=== PATIENT | male | born 1960 | race Caucasian/White ===

== ENCOUNTER → 2018-10-02 13:57 | Outpatient (REF) | payer OTHER, SELFPAY | LOC: LAB 13:57 | PROVIDERS: Visit Provider Dermatology MOHS-Micrographic Surgery | DX: Z48.817 Encounter for surgical aftercare following surgery on the skin and subcutaneous tissue (principal) | CPT/HCPCS: 87070; 87077; 87147; 87186; 87205 ==

== ENCOUNTER → 2018-10-19 23:23 | Outpatient (REF) | payer OTHER, SELFPAY | LOC: LAB 23:23 | PROVIDERS: Visit Provider Dermatology MOHS-Micrographic Surgery | DX: L08.9 Local infection of the skin and subcutaneous tissue, unspecified (principal); Z48.817 Encounter for surgical aftercare following surgery on the skin and subcutaneous tissue | CPT/HCPCS: 87070; 87075; 87077; 87147; 87205 ==

== ENCOUNTER 2019-10-26 13:04 | Day surgery (SDC) | payer OTHER, SELFPAY ==
[2019-10-25 10:48] VITALS: BMI 24.0
[2019-10-26] VITALS (7 sets, daily range): BP systolic 135–163; BP diastolic 84–91; PULSE 86–94; RESP 11–18; TEMP 35.9–36.7; O2SAT 81–97; BMI 23.2
[2019-10-26] MEDS: LACTATED RINGERS 1,000 ML 42 ML IV ×2 (14:29→16:50)
--- NOTE | 2019-10-26 15:18 | PM.PREOP ---
Pre-operative Note Interval Note History & Physical reviewed/Exam performed by Physician: Yes Changes to H&P: No
[2019-10-26] MEDS: CEFAZOLIN 2 GM/100 ML FROZ.PIGGY IV (15:40)
--- NOTE | 2019-10-26 16:08 | SUR.OPER ---
Supine on padded OR bed, head on pillow, bilateral arms padded and tucked at side, legs uncrossed, safety belt at thigh, tape over blanket over lower legs .
[2019-10-26] MEDS: BUPIVACAINE 0.25% (PF) VIAL 30 ML INJ (16:14)
--- NOTE | 2019-10-26 17:55 | PM.OP.1 ---
Operative Date/Time/Diagnoses Date of procedure: 10/26/19 Time of procedure: 17:55 Pre-op diagnosis: Bilateral inguinal hernia Post-op diagnosis: same Procedure & Clinicians Procedure: Laparoscopic transabdominal preperitoneal repair of bilateral inguinal hernia Same procedure as scheduled: Yes Indications: Bilateral inguinal hernia Surgeon: Daniel Melo Anesthesia Type: General Operative Notes Findings: Bilateral direct inguinal hernia Estimated Blood Loss (mL): 20 Procedure in detail: The patient was brought to the operating room and placed supine on the table. Bilateral sequential compression devices were applied. General anesthesia was induced and they were intubated with an endotracheal tube. A carty cath was placed in sterile fashion. They received Ancef prior to skin incision. They were prepped and draped in sterile fashion. A time out was performed to ensure the correct patient, procedure and necessary equipment within the operating room. The skin was infiltrated with 0.25% bupivicaine. A 1 cm supra umbilical midline incision was made. The fascia was elevated and sharply incised and the abdomen entered traumatically. A 12 mm balloon port was placed and pneumoperitoneum was established at 15mm Hg. Inspection of the abdomen demonstrated no evidence of injury upon entry. Two 5 mm ports were then placed under direct visualization in the right and left lower quadrant lateral to the rectus muscle. A left and right direct hernias were observed. We began with the left inguinal hernia. The vas deferns the spermatic vessels were identified and protected. The sigmoid colon was slightly obscuring our view and its lateral attachments were carefully incised in order to mobilize it out of the way. The peritoneum 4 cm superior to the deep inguinal ring between the medial umbilical ligament and the anterior superior iliac spine was incised. The peritoneal flap was retracted and the preperitoneal tissue was dissected off the flap beginning lateral to the inferior epigastric artery and towards the ASIS and to posterior limit of the psoas muscle to develop the lateral aspect of the pocket. Next the peritoneum medial to the inferior epigastric was mobilized towards the median umbilical ligament to develop the medial aspect of the pocket and the direct defect was reduced. The space of Retzius was fully dissected such that the Haroldo's ligament and the pubic symphysis were visible. Next, the peritoneum was mobilized off the the spermatic vessels and vas deferns. A medium Bard 3D Max mesh was then placed into the abdomen and positioned such that the myopectineal orifice was completely covered with good overlap on all sides. The mesh was anchored to the pubic tubercle and to Haroldo?s ligament. The peritoneal flap was then repositioned back to its original position and tacks were used to anchor it in position such that no bowel could herniate into the preperitoneal space. The area was examined for hemostasis. Next the right inguinal hernia was approached. This patient had a previous open appendectomy and there was significant scar tissue in the right groin. The scar tissue was carefully and sharply incised with scissors in order to provide adequate access to the right groin anatomy. The right groin was then repaired in the same fashion as the left. It had a small size right direct inguinal hernia, there was no indirect defect. A Bard 3DMax medium mesh was positioned into the myopectineal orifice and was then closed in the same fashion. The 5mm trocars were removed under direct visualization and pneumoperitoneum was deflated through the umbilical trocar, The fascia at the umbilicus was closed with 0-Vicryl in figure of 8 fashion, skin closed with 4-0 Monocyl followed by Dermabond. The sponge and instrument count at the end of the case was correct. Both testicles were entirely within the scrotum at the end of the case. The patient emerged from anesthsia was extubated and transferred to recovery in stable condition. Complications: none Post-operative Condition: stable Disposition: same day surgery
--- NOTE | 2019-10-26 17:58 | SUR.PHASEI ---
Patient awake alert and oriented denies pain/nausea. Magaly LEARY.
[2019-10-26] MEDS: OXYCODONE/ACETAMINOPHEN 5/325 TABLET 1 TAB PO (18:41)
--- NOTE | 2019-10-26 18:46 | SUR.PHASEII ---
Patient had small amount of hematuria when voiding. Dr Melo notified. Patient had a carty catheter during procedure.
== END 2019-10-26 18:47 | disposition home or self-care (01) ==
PROVIDERS: PCP General Practice; Referring Provider Surgery; Visit Provider Surgery
PROC: 0YQ64ZZ Repair Left Inguinal Region, Percutaneous Endoscopic Approach (ICD-10-PCS; CPT 49650; principal; 2019-10-26 14:45)
DX: K40.20 Bilateral inguinal hernia, without obstruction or gangrene, not specified as recurrent (principal)
CPT/HCPCS: 49650; C1781; J0690; J1100; J1885; J2250; J2405; J2704; J3010

== ENCOUNTER → 2020-01-28 12:54 | Outpatient (CLI) | payer OTHER, SELFPAY ==
--- NOTE | 2020-01-28 13:57 | DI.CT.S_ITS ---
PROCEDURE: CT ABDOMEN PELVIS W CON INDICATIONS: left groin discomfort after hernia repair TECHNIQUE: After the administration of oral and intravenous contrast, 5 mm thick sections acquired from the diaphragms to the symphysis. 5 mm thick coronal and sagittal reformats were performed. For radiation dose reduction, the following was used: automated exposure control, adjustment of mA and/or kV according to patient size. COMPARISON: None. FINDINGS: Image quality: Excellent. ABDOMEN: Lung bases: Lung bases are clear. Heart size is normal. Solid organs: Liver is normal in size and enhancement. Gallbladder is normal. Biliary system is non-dilated. Pancreas enhances normally. Spleen is normal in size and enhancement. No adrenal nodules. Kidneys are normal in size and enhancement, without hydronephrosis. A 2.9 cm exophytic right renal cyst. Peritoneum and bowel: Stomach, small bowel, and colon loops are normal in caliber and wall thickness. No free fluid or air. Nodes and vessels: No retroperitoneal or mesenteric adenopathy. Aorta and inferior vena cava are normal in caliber. The appendix is not definitely visualized, however no free fluid or inflammatory changes are noted adjacent to the cecum. Miscellaneous: No ventral hernias. PELVIS: Genitourinary: Bladder wall is diffusely thickened and slightly irregular. Stranding is noted in the fat anterior to the inferior margin of the urinary bladder extending to the right inguinal canal which could represent postsurgical scarring or inflammation. Miscellaneous: No inguinal adenopathy. Surgical clips noted in the right inguinal canal possibly related to hernia repair. There is a small fat containing left inguinal hernia. Bones: No suspicious bony lesions. No vertebral body compression fractures. Spine degenerative disc disease and facet arthropathy. Bilateral sacroiliac joint osteoarthritis. IMPRESSION: 1. Small fat containing left inguinal hernia. 2. Mild, diffuse urinary bladder wall thickening and irregularity. Differential diagnosis includes infectious, inflammatory and neoplastic etiologies. Recommend correlation with urinalysis data. 3. Stranding anterior and inferior to the urinary bladder which could represent postsurgical scarring or inflammation. Dictated by: Lupe Santana MD, PhD on 01/28/2020 at 16:37 Approved by: Lupe Santana MD, PhD on 01/28/2020 at 16:44
== END ==
PROVIDERS: PCP General Practice; Referring Provider Surgery; Visit Provider Surgery
DX: R10.32 Left lower quadrant pain (principal); K40.90 Unilateral inguinal hernia, without obstruction or gangrene, not specified as recurrent; Z98.890 Other specified postprocedural states
CPT/HCPCS: 74177; Q9967

== ENCOUNTER → 2020-03-18 15:31 | Outpatient (CLI) | payer OTHER, SELFPAY ==
[2020-03-21 07:21] LABS: COVID19 Sendout Not Detected (Not Detect)
== END ==
PROVIDERS: PCP General Practice; Visit Provider Physician Assistant
DX: Z11.59 Encounter for screening for other viral diseases (principal)
CPT/HCPCS: 87635

== ENCOUNTER 2020-03-21 06:33 | Day surgery (SDC) | payer OTHER, SELFPAY ==
[2020-03-20 07:50] VITALS: BMI 24.4
[2020-03-21] VITALS (7 sets, daily range): BP systolic 127–142; BP diastolic 70–91; PULSE 72–83; RESP 12–16; TEMP 36.1–36.6; O2SAT 96–99; BMI 23.2
[2020-03-21] MEDS: LACTATED RINGERS 1,000 ML 42 ML IV (07:27)
--- NOTE | 2020-03-21 07:29 | PM.HP.1 ---
History of Present Illness History of Present Illness Date Patient Seen: 03/21/20 Time Patient Seen: 07:29 Chief complaint: RECURRENT LIH REPAIR Narrative: This is a a 59-year-old man who underwent a laparoscopic bilateral inguinal hernia repair 4 months ago but subsequently developed a recurrence of his left inguinal hernia. He is here for elective repair. There been no interval changes in his health. Medical history significant for hypertension and obstructive sleep apnea. Patient History Medical History Arthritis (Acute) Eczema (Acute) HTN (hypertension) (Acute) Skin cancer (Acute) Sleep apnea (Acute) Squamous cell carcinoma (Acute) Surgical History History of appendectomy (Acute) Hx of bilateral inguinal hernia repair (Acute 10/26/19) Hx of tonsillectomy (Acute 1964) Family & Social History Social History: household members spouse Tobacco & Substance use: Tobacco type cigarettes,cigars,smokeless tobacco Smoking Status Former smoker alcohol intake current alcohol intake frequency 3 or more drinks per day Substance Use Type marijuana Meds Home Medications and Allergies Home Medications Medication Instructions Recorded Confirmed Type docusate sodium [Colace] 100 mg PO BID #40 cap 10/26/19 01/10/20 Rx ibuprofen 800 mg PO Q6H PRN #90 tab 10/26/19 01/10/20 Rx oxycodone 5 mg PO Q6H PRN #30 tab 10/26/19 01/10/20 Rx Allergies Allergy/AdvReac Type Severity Reaction Status Date / Time No Known Drug Allergies Allergy Verified 01/10/20 14:28 Review of Systems Review of Systems Narrative: A 10 point review of systems is negative except as noted in the HPI Exam Vital Signs (past 8 hours): - 03/21/20 07:12 Temperature 97.4 F L Pulse Rate 83 Respiratory Rate 16 Blood Pressure 140/84 Pulse Oximetry 98 Oxygen Delivery Method Room Air Narrative Exam Narrative: General-no acute distress, well nourished HEENT-moist mucous membranes, no scleral icterus Neck-supple, no lymphadenopathy Chest- non labored respirations, clear to auscultation bilaterally Cardiac-regular rate no peripheral edema Abdomen-reducible left inguinal hernia Extremities-warm, well perfused Neurological-alert and oriented, no focal deficits Assessment & Plan Assessment and plan (1) Recurrent left inguinal hernia: Status: Acute Assessment & Plan narrative: 59-year-old male with a recurrence of a left inguinal hernia previously repaired via transabdominal preperitoneal approach. He is here today for a open left inguinal hernia repair. We discussed technical nature of the procedure the operative risks of bleeding infection recurrence chronic pain testicular ischemia and infertility. His questions have been answered he is in agreement with this plan will proceed to the operating room. COVID-19 COVID-19 status: Negative
[2020-03-21] MEDS: CEFAZOLIN 2 GM/100 ML FROZ.PIGGY IV (07:42)
--- NOTE | 2020-03-21 08:01 | SUR.OPER ---
Supine on padded OR bed, head on pillow, arms secured on padded arm boards at <90 degrees abduction, legs uncrossed, safety belt at thigh, tape over blanket over lower legs.
[2020-03-21] MEDS: BUPIVACAINE 0.25% (PF) VIAL 30 ML INJ (08:14)
--- NOTE | 2020-03-21 09:21 | P.OP_ITS ---
Operative Date/Time/Diagnoses Date of procedure: 03/21/20 Time of procedure: 09:21 Pre-op diagnosis: Recurrence left inguinal hernia Post-op diagnosis: same Procedure & Clinicians Procedure: Open left inguinal hernia repair with mesh Same procedure as scheduled: Yes Indications: 59-year-old man underwent a laparoscopic transabdominal preperi toneal repair of bilateral inguinal hernias 4 months ago and subsequently developed a recurrence of his left inguinal hernia. Surgeon: Daniel Melo Anesthesia Type: General Operative Notes Findings: Direct left inguinal hernia defect, cord lipoma Specimen(s): none sent Estimated Blood Loss (mL): 10 Procedure in detail: The patient was placed supine on the table and bilateral lower extremity compression devices were applied. Anesthesia was induced they were intubated with an LMA and received 2g of Ancef. A time-out was performed. They were prepped and draped in sterile fashion. The left external inguinal ring and the anterior superior iliac crest were identified and marked. 1 finger breath above the right inguinal ligament the skin was infiltrated with 0.25% bupivacaine. The skin incision was made here and the subcutaneous tissues were divided with electrocautery exposing the external oblique aponeurosis which was then opened along the direction of its fibers. The ilioinguinal nerve was identified on the anterior aspect of the cord and protected. Using a kittner cord was carefully dissected away from the inguinal canal adjacent to the pubic tubercle. The cord was freed and encircled with a Heather drain. A direct floor defect was identified. I identified the iliohypogastric nerve emerging through the medial aspect of the external oblique aparoneurosis. The cremasteric fibers surrounding the cord were divided using electrocautery. The vas deferens and the testicular vessels were preserved and protected. There was no indirect hernia, there was a small cord lipoma which was skeletonized away from the vas deferens and testicular blood supply back to the internal ring and reduced spontaneously into the abdomen. A plug of Prolene mesh was placed into the floor defect and secured with Vicryl suture. I selected a 7x 15 cm lightweight Pro Loop hernia mesh. The inferior medial aspect of the mesh was anchored to the periosteum of the pubic tubercle such that there was approximately 2 cm of tubercle overlap with 0 Prolene and then was run continuously along the inferior edge of the mesh to the shelving edge of the inguinal ligament. Interrupted 3 0 Vicryl suture was used to anchor the superior aspect of the mesh to the conjoined tendon in several places. The tails were then reapproximated around the spermatic cord loosely. The tails of the mesh were then tucked under the external oblique aponeurosis. The repair was checked for hemostasis. The wound was irrigated with sterile saline. The external oblique aponeurosis was reapproximated in a running fashion using 3 0 Vicryl. The subcutaneous tissues were reapproximated with 3 0 Vicryl skin closed with 4 0 Monocryl followed by the application of Dermabond. At the end of the operation I ensured that both testicles were within the scrotum. The sponge instrument count at the end operation was correct. The patient emerged from anesthesia was extubated and transferred to the postoperative care unit in stable condition. A total of 30 ml of of 0.25% bupivicaine was used to infiltrate the skin. Complications: none Post-operative Condition: stable Disposition: same day surgery
== END 2020-03-21 10:00 | disposition home or self-care (01) ==
PROVIDERS: PCP General Practice; Referring Provider Surgery; Visit Provider Surgery
PROC: (CPT 49520; principal; 2020-03-21 07:45)
DX: K40.91 Unilateral inguinal hernia, without obstruction or gangrene, recurrent; G47.33 Obstructive sleep apnea (adult) (pediatric); I10 Essential (primary) hypertension; D17.6 Benign lipomatous neoplasm of spermatic cord
CPT/HCPCS: 49520; C1781; J0690; J1100; J2250; J2405; J2704; J3010

== ENCOUNTER → 2022-01-14 15:27 | Outpatient (CLI) | payer OTHER, SELFPAY ==
[2022-01-14 16:13] LABS: COVID19 -Nasal RAPID Negative (Negative)
== END ==
PROVIDERS: PCP General Practice; Visit Provider Surgery
DX: Z20.822 Contact with and (suspected) exposure to COVID-19 (principal); Z01.812 Encounter for preprocedural laboratory examination
CPT/HCPCS: 87635; C9803

== ENCOUNTER 2022-01-15 06:40 | Day surgery (SDC) | payer OTHER, SELFPAY ==
[2022-01-09 08:39] VITALS: BMI 25.4
--- NOTE | 2022-01-15 | PATH_ITS ---
[facility] Accession Number: [id number] . 01 Material submitted: . body - ILIOINGUINAL NERVE (?) . 01 Diagnosis: Ileoinguinal Nerve, Excision: Segment of fibrous tissue and nerve. No evidence of neoplasm. MRV 01/22/2022 1416 Local . 01 Electronically signed: . Ulises Soto MD, PhD, Pathologist NPI- [id number] . 01 Gross description: . Received in a container of formalin labeled ilioinguinal nerve is a 1.4 x 0.3 cm hemorrhagic cylindrical fragment of soft tissue which is submitted in toto in cassette A1. ([id number]) /[facility] 01/18/2022 1938 Local . 01 Pathologist provided ICD-10: K40.91 . 01 CPT . 248912 Specimen Comment: A courtesy copy of this report has been sent to [phone] Performed at: 01 [facility] [address] [place] [address], [place], [place] [id number] MD Damián Molina MD Phone: [phone]
[2022-01-15 07:12] VITALS: BMI 25.4
[2022-01-15 07:19] VITALS: BP 146/84; PULSE 80; RESP 16; TEMP 36.6; O2SAT 98
[2022-01-15] MEDS: LACTATED RINGERS 1,000 ML 42 ML IV (07:25)
--- NOTE | 2022-01-15 07:47 | PM.HP.1 ---
History of Present Illness History of Present Illness Date Patient Seen: 01/15/22 Time Patient Seen: 07:48 Chief complaint: OPEN RECURRENT LIH REPAIR Narrative: Dina is a 61-year-old man who had a bilateral laparoscopic inguinal hernia repair and October of 2019 with a left-sided recurrence. In open left inguinal hernia repair for the recurrence but it recurred again. See the office note from November for details. Patient History Medical History Arthritis Eczema HTN (hypertension) Skin cancer Sleep apnea Squamous cell carcinoma Surgical History (Updated 01/09/22 @ 08:44 by Alvina Freire RN) History of appendectomy Hx of bilateral inguinal hernia repair (10/26/19) Hx of hernia repair (03/21/20) Hx of tonsillectomy (1964) Family & Social History Social History: household members spouse Tobacco & Substance use: Tobacco type cigarettes,cigars,smokeless tobacco Smoking Status Former smoker alcohol intake current alcohol intake frequency 3 or more drinks per day Substance Use Type marijuana Meds Home Medications and Allergies Home Medications Medication Instructions Recorded Confirmed Type multivitamin (Daily Multi-Vitamin) 1 tab PO DAILY 12/13/21 01/09/22 History dupilumab [Dupixent Pen] 300 mg SUBCUT 1-2XD 12/18/21 History lisinopril 20 mg tablet 20 mg PO DAILY 01/15/22 History Allergies Allergy/AdvReac Type Severity Reaction Status Date / Time No Known Drug Allergies Allergy Verified 12/12/21 14:17 Exam Vital Signs (past 8 hours): - 01/15/22 07:19 Temperature 97.8 F Pulse Rate 80 Respiratory Rate 16 Blood Pressure 146/84 H Pulse Oximetry 98 Oxygen Delivery Method Room Air Narrative Exam Narrative: Left reducible inguinal hernia Assessment & Plan Assessment and plan (1) Recurrent left inguinal hernia: Status: Acute Plan We will plan for open left inguinal hernia repair with mesh. COVID-19 COVID-19 status: Negative Result date/Date tested (Pos, Neg/Pending): 01/14/22 Time Spent With Patient Critical Care time: I spent a total of [] minutes of critical care time on this patient's care today; this time is exclusive of procedural time.
[2022-01-15] MEDS: CEFAZOLIN 2 GM/20 ML SYRINGE IV (08:15)
--- NOTE | 2022-01-15 08:23 | SUR.OPER ---
Supine on padded OR bed, head on pillow, arms secured on padded arm boards at <90 degrees abduction, legs uncrossed, safety belt at thigh, tape over blanket over lower legs. Gel pad under bilateral heels.
[2022-01-15] MEDS: BUPIVACAINE 0.5% (PF) VIAL 30 ML INJ (08:34)
[2022-01-15] MEDS: LIDOCAINE 1% W/EPI 20 ML INJ (08:34)
--- NOTE | 2022-01-15 10:07 | PM.OP.1 ---
Operative Date/Time/Diagnoses Date of procedure: 01/15/22 Time of procedure: 10:07 Pre-op diagnosis: Recurrent left inguinal hernia Post-op diagnosis: same Procedure & Clinicians Procedure: Open left recurrent inguinal hernia repair Same procedure as scheduled: Yes Surgeon: Edvin Kay Operative Notes Procedure in detail: Preoperative antibiotic was administered. The patient was brought to the operating room and placed on the table in supine position general anesthesia was induced. The left groin was prepped and draped in the normal fashion and a time-out was performed. Roughly 10 mL of local anesthetic were injected into the skin and subcutaneous adipose tissue over the left groin. A 6 cm incision was made over the left inguinal canal where the prior surgical scar was visible. Dissection was carried down through the subcutaneous adipose tissue. The external oblique fascia was not intact and eventually the hernia itself was visible on the subcutaneous adipose tissue. The pre-existing mesh could be palpated in the inguinal canal and the structures were not easily identifiable. Dissecting along the hernia sac we were able to trace the cord structures down to the internal ring. There was fatty tissue herniating through internal ring medial to the cord. Fatty tissue was reduced into the abdomen. Three 2-0 Prolene sutures were used to close the space where the hernia had been prolapsing alongside the cord structures. These sutures were closing the conjoined tendon down to what was most likely the some of the mesh plug. This portion of the mesh was well incorporated. We found a putative ilioinguinal nerve and dissected it free from some of the old scar tissue and transected it cleanly with Metzenbaum scissors. We injected plenty of lidocaine and Marcaine around the nerve sheath. Sent a small fragment of this structure to identify what it was. Finally, we removed the Heather drain and closed the external oblique fascia with a running 3-0 Vicryl suture. Skin was closed with interrupted 3-0 Vicryl dermal sutures and a running 4 Monocryl subcuticular stitch. EBL 5 mL The patient was awakened and brought to recovery room. Post-operative Condition: stable Disposition: PACU
[2022-01-15 10:09] VITALS: BP 156/83; PULSE 83; RESP 14; TEMP 36.2; O2SAT 95
[2022-01-15 10:13] VITALS: BP 152/91; PULSE 79; RESP 11; O2SAT 95; O2SAT 97
[2022-01-15 10:18] VITALS: BP 148/83; PULSE 77; RESP 11; O2SAT 97
[2022-01-15] MEDS: OXYCODONE IR 5 MG TABLET PO (10:22)
[2022-01-15] MEDS: ONDANSETRON 4 MG/2 ML INJ IV (10:22)
[2022-01-15] MEDS: ACETAMINOPHEN 325 MG TABLET 975 MG PO (10:22)
[2022-01-15 10:24] VITALS: BP 146/90; PULSE 73; RESP 11; O2SAT 97
[2022-01-15 10:34] VITALS: BP 148/84; PULSE 72; RESP 11; TEMP 36.2; O2SAT 98
== END 2022-01-15 10:53 | disposition home or self-care (01) ==
PROVIDERS: PCP Physician Assistant; Referring Provider Surgery; Visit Provider Surgery
PROC: (CPT 49505; principal; 2022-01-15 07:45)
DX: K40.91 Unilateral inguinal hernia, without obstruction or gangrene, recurrent (principal); I10 Essential (primary) hypertension; G47.33 Obstructive sleep apnea (adult) (pediatric)
CPT/HCPCS: 49505; J0690; J1100; J1885; J2405; J2704; J3010

== ENCOUNTER 2024-07-19 11:52 | Day surgery (SDC) | payer OTHER, SELFPAY ==
[2024-07-19 13:25] VITALS: BP 150/85; PULSE 83; RESP 16; TEMP 36.3; O2SAT 95
--- NOTE | 2024-07-19 14:08 | P.HP_ITS ---
History of Present Illness History of Present Illness Date Patient Seen: 07/19/24 Time Patient Seen: 14:08 Chief complaint: Screening Colonoscopy Narrative: 64-year-old male here for colon cancer screening. He had a negative exam some 11 years ago. I reviewed the recent note in clinic by Jose Flores. No changes. [facility] Medical History Arthritis Eczema Skin cancer Sleep apnea HTN (hypertension) Squamous cell carcinoma Surgical History Hx of hernia repair (03/21/20) Hx of bilateral inguinal hernia repair (10/26/19) Hx of tonsillectomy (1964) History of appendectomy Social History household members: spouse Smoking Status: Former smoker alcohol intake: current Meds Home Medications and Allergies Home Medications Medication Instructions Recorded Confirmed Type multivitamin (Daily Multi-Vitamin 1 tab PO DAILY 12/13/21 01/30/22 History tablet) dupilumab [Dupixent Pen] 300 mg SUBCUT 1-2XD 12/18/21 01/30/22 History hydrocodone 5 mg-acetaminophen 325 1 tab PO Q8H PRN pain #10 tabs 01/15/22 01/30/22 Rx mg tablet lisinopril 20 mg tablet 20 mg PO DAILY 01/15/22 07/19/24 History Allergies Allergy/AdvReac Type Severity Reaction Status Date / Time No Known Drug Allergies Allergy Verified 07/19/24 13:37 Review of Systems Review of Systems ROS: Yes All systems reviewed with the patient and are negative except as otherwise documented Exam Vital Signs (past 8 hours): - 07/19/24 13:25 Temperature 97.3 F L Pulse Rate 83 Respiratory Rate 16 Blood Pressure 150/85 H Pulse Oximetry 95 Oxygen Delivery Method Room Air Oxygen Delivery Method Room Air Const General: cooperative HENMT Head: normal to inspection Eyes General: appearance normal, both eyes and all related structures Neck Neck: normal visual inspection Chest Chest: normal inspection of the chest Resp Effort & Inspection: normal respiratory effort Cardio Rate: regular rate GI Inspection: normal to inspection Skin General: no rashes or lesions noted Neuro General: patient alert and patient awake Extrem General: normal to inspection and no pedal edema Psych Appearance: grossly normal Assessment & Plan Assessment & Plan narrative: 64-year-old male indicated for colon cancer screening. Colonoscopy is pursued today. Time-Based Coding :: [TOTAL MINUTES] spent with patient and on the chart (including review of chart, obtaining history, exam, reviewing outside data, placing orders, documenting exam and treatment plan, and counseling patient) on [DATE].
--- NOTE | 2024-07-19 14:09 | PM.PREOP ---
Pre-operative Note Interval Note History & Physical reviewed/Exam performed by Physician: Yes Changes to H&P: No ASA Class (for procedural sedation): II
--- NOTE | 2024-07-19 14:55 | PM.OP.COLON ---
Operative Date/Time/Diagnoses Date of procedure: 07/19/24 Time of procedure: 14:56 Pre-op diagnosis: Colon cancer screening Post-op diagnosis: same Procedure & Clinicians Study performed: Colonoscopy Procedure Notes SCOAP/Timeout: Done Procedure in detail: After the risks and benefits were explained, written and verbal informed consent was obtained. The patient was brought into the procedure room and placed into the left lateral decubitus position. Please see anesthesia notes for sedation details. Digital rectal examination was accomplished. The scope was introduced into the patient and advanced under direct visualization to the cecum as identified by the appendiceal orifice and ileocecal valve. The scope was slowly withdrawn to carefully examine the mucosa for any defects or lesions. Comprehensive imaging was accomplished throughout the rectum including the dentate line. The colon was decompressed, the scope was then removed from the patient who tolerated the procedure well. Pediatric colonoscope Bowel prep adequate Scope withdrawal time: Approximately 10 minutes Sedation minutes: 19 Specimen(s): none sent Complications: none Impression: No significant polyps mass lesions or inflammatory features identified throughout. Endoscopic diagnosis: Visually normal colonoscopy Post-procedure Plan for aftercare: Repeat colonoscopy 10 years for screening purposes. Disposition: PACU
[2024-07-19 14:57] VITALS: BP 123/73; PULSE 77; RESP 15; TEMP 36.3; O2SAT 99
[2024-07-19 15:02] VITALS: BP 125/71; PULSE 81; RESP 13; O2SAT 98
[2024-07-19 15:07] VITALS: BP 118/72; PULSE 71; RESP 13; O2SAT 98
[2024-07-19 15:19] VITALS: BP 123/74; PULSE 70; RESP 4; O2SAT 97
== END 2024-07-19 15:23 | disposition home or self-care (01) ==
PROVIDERS: PCP Physician Assistant; Referring Provider Internal Medicine Gastroenterology; Visit Provider Internal Medicine Gastroenterology
PROC: 0DJD8ZZ Inspection of Lower Intestinal Tract, Via Natural or Artificial Opening Endoscopic (ICD-10-PCS; CPT 45378; principal; 2024-07-19 15:30)
DX: Z12.11 Encounter for screening for malignant neoplasm of colon (principal)
CPT/HCPCS: 45378; J2704

== ENCOUNTER → 2024-07-21 15:35 | Outpatient (CLI) | payer OTHER, SELFPAY ==
--- NOTE | 2024-07-21 15:37 | DI.US.S_ITS ---
PROCEDURE: US EXTREMITY NONVASC LOWER RT INDICATIONS: RT SUPERIOR ANTERIOR THIGH MASS TECHNIQUE: Real-time scanning was performed of the right thigh, at patient's area of concern, with image documentation. COMPARISON: None. FINDINGS: At patient's area of concern, in the right proximal lateral thigh, there is minimally complex , elongated fluid collection measuring 8.2 x 6.4 x 1.0 cm, likely representing a chronic hematoma. IMPRESSION: Chronic elongated hematoma in the soft tissue of the proximal lateral right thigh. Dictated by: Yanet Pardo M.D. on 07/21/2024 at 17:20 Approved by: Yanet Pardo M.D. on 07/21/2024 at 17:23
== END ==
LOC: US 15:36
DX: S70.11XA Contusion of right thigh, initial encounter (principal); X58.XXXA Exposure to other specified factors, initial encounter
CPT/HCPCS: 76882

== ENCOUNTER 2025-03-02 06:12 | Day surgery (SDC) | payer OTHER, SELFPAY ==
[2025-03-01 12:17] VITALS: BMI 25.0
--- NOTE | 2025-03-02 | DI.RAD.S_ITS ---
PROCEDURE: XR CLAVICLE LT INDICATIONS: left clavicle orif TECHNIQUE: 2 views of the clavicle were acquired. COMPARISON: None. FINDINGS: Bones: Distal clavicular fracture has been reduced to anatomic alignment and transfixed by superior plate and screws. Acromioclavicular and glenohumeral joints: Normal in width and alignment without arthritic change Soft tissues: No soft tissue swelling, calcification or mass. IMPRESSION: ORIF distal clavicle fracture anatomic alignment Dictated by: Tushar Patel M.D. on 03/03/2025 at 11:33 Approved by: Tushar Patel M.D. on 03/03/2025 at 11:34
--- NOTE | 2025-03-02 | DI.RAD.S_ITS ---
PROCEDURE: XR CLAVICLE LT INDICATIONS: post operative imaging TECHNIQUE: 2 views of the clavicle were acquired. COMPARISON: Outside Facility, CR, XR SHOULDER LT 2+ VIEWS, 02/20/2025, 20:11. [facility], CR, XR CLAVICLE LT, 03/02/2025, 9:27. FINDINGS: Bones: Postsurgical changes from left clavicle fracture fixation with a dorsal plate and screw construct and additional interfragmentary screws. Alignment has improved. No new osseous abnormality. Soft tissues: No suspicious soft tissue calcifications. IMPRESSION: Status post internal fixation of the previously seen left clavicle fracture with improved alignment. Approved by: Ricardo Ram M.D. on 03/02/2025 at 10:49
[2025-03-02 06:43] VITALS: BP 130/79; PULSE 72; RESP 18; TEMP 36.5; O2SAT 97; BMI 25.0
[2025-03-02] MEDS: ACETAMINOPHEN 325 MG TABLET 975 MG PO (07:04)
[2025-03-02] MEDS: LACTATED RINGERS 1,000 ML 42 ML IV ×2 (07:04→10:58)
--- NOTE | 2025-03-02 07:16 | PM.PREOP ---
Pre-operative Note Interval Note History & Physical reviewed/Exam performed by Physician: Yes Changes to H&P: No
[2025-03-02] MEDS: CEFAZOLIN 2 GM/100 ML PREMIX 100 ML IV (07:54)
--- NOTE | 2025-03-02 08:25 | SUR.OPER ---
Supine on padded OR bed, head on pillow, right arm secured on padded arm board at side, left arm held on field, legs uncrossed, safety belt at thigh, tape over blanket over lower legs.
[2025-03-02] MEDS: BUPIVACAINE 0.25% W/ EPI 30 ML VIAL 60 ML INJ (08:37)
[2025-03-02 10:08] VITALS: BP 145/79; PULSE 95; RESP 12; TEMP 36.6; O2SAT 97
[2025-03-02 10:13] VITALS: BP 133/73; PULSE 94; RESP 16; TEMP 36.6; O2SAT 95
--- NOTE | 2025-03-02 10:17 | P.OP_ITS ---
Operative Date/Time/Diagnoses Date of procedure: 03/02/25 Time of procedure: 10:24 Pre-op diagnosis: Left distal clavicle fracture Post-op diagnosis: same Procedure & Clinicians Procedure: LEFT Clavicle ORIF Same procedure(s) as scheduled: Yes Surgeon: Bismark Martini Anesthesia Type: General Operative Notes Findings: Displaced Lateral left clavicle fracture Prosthetic devices, grafts, tissues, transplants, or devices: simple sling Applied: none Estimated Blood Loss (mL): 20 Procedure in detail: Op Note Date of Procedure: March 02, 2025 Pre-Op Diagnosis: Left Closed displaced clavicle fracture Post-Op Diagnosis: Left Closed displaced clavicle fracture Procedure(s): Open Reduction and Internal Fixation of the Clavicle Surgeon: Bismark Martini MD Commercial Credit Officer in OR: RAHEL Carias Physician Commercial Credit Officer was used throughout the entirety of the case. This operation could not have been safely performed (without compromising the technical results or length of the procedure) without the assistance of a skilled visual merchandising assistant. A visual merchandising assistant was medically necessary for room set up, patient positioning, draping, retraction, visualization, reduction, fixation and closure. They were essential for the success of the case. Anesthesia Type: General EBL: 20 mL Urine Output : N/A Complications: None. Implants/Grafts: White and Nephew screws and plate Drains: No lines, drains, or airways are recorded for this episode. Findings: Displaced clavicle fracture. It was reduced and fixed with interval f ixation. Narrative: The patient was taken to the OR and administered anesthetic and preoperative antibiotics. They were placed into the supine position with the neck neutral. They were prepped and draped in the standard fashion. A timeout was held and we proceeded. A 10cm incision was made anterior to the clavicle and the platysma was incised with electrocautery. A full thickness flap was created over the fascia and this was brought to the superior clavicle. The fascia was split over the clavicle and freed from the bone with a bhakta. The fracture ends were debrided of early callus and blocks to reduction. It was discovered that he had a large oblique fracture to include an inferior fragment that extended from the lateral fragment. This allowed us to have good reduction and placed 2 lag screws. From there we were able to place our lateral clavicle plate. Initially we placed a 3 5 screw medially which held the plate in position. After that we filled our lateral holes with a combination of locking screws and cortical screws. Then we finished with remaining 3 5 cortical screws on the medial aspect of the plate. Xrays confirmed plate position, reduction, and screw length. The wound was irrigated with saline and a layered closure was performed with 0-vicryl in the fascia, 2-0 vicryl in the platysma, 2-0 vicryl in the dermis, and 3-0 nylon horizontal sutures in the skin. Sterile dressing was applied. Patient transferred to recovery room bed. Patient transferred to recovery room in stable condition. Chest x-ray is pending Plan: Pendulum for 2 weeks Sling time piece repairer for 6 weeks - may remove for ROM Weeks 2-6 - active and passive ROM below the horizon Weeks 6-12 - full active ROM, no strengthening Weeks 12 and beyond - gradual strengthening and introduction of dynamic activities Bismark Martini MD Complications: none Post-operative Condition: stable Disposition: PACU
[2025-03-02 10:21] VITALS: BP 144/80; PULSE 90; RESP 15; TEMP 36.6; O2SAT 94
[2025-03-02 10:33] VITALS: BP 135/75; PULSE 85; RESP 15; TEMP 36.4; O2SAT 96
[2025-03-02 10:55] VITALS: BP 156/93; PULSE 88; RESP 14; TEMP 36.6; O2SAT 96
== END 2025-03-02 12:05 | disposition home or self-care (01) ==
LOC: OR 06:13
PROVIDERS: Referring Provider Orthopaedic Surgery; Visit Provider Orthopaedic Surgery
PROC: 0PSB04Z Reposition Left Clavicle with Internal Fixation Device, Open Approach (ICD-10-PCS; CPT 23515; principal; 2025-03-02 07:45)
DX: S42.032A Displaced fracture of lateral end of left clavicle, initial encounter for closed fracture (principal); Y93.55 Activity, bike riding; Z87.891 Personal history of nicotine dependence
CPT/HCPCS: 23515; 73000; 76000; C1713; J0330; J0690; J1100; J1171; J1885; J2250; J2405; J2704; J3010